=== PATIENT | male | born 1980 | race African-American/Black ===

== ENCOUNTER 2019-06-07 09:16 | Observation (INO) | payer MEDICAID ==
--- NOTE | 2019-06-07 09:51 | ER Document Report ---
ED Medical Screen (RME) - General Chief Complaint: High Blood Sugar Stated Complaint: WEAKNESS Time Seen by Provider: 06/07/19 09:44 TRAVEL OUTSIDE OF THE [place] IN LAST 30 DAYS: No - HPI Notes: 06/07/19 09:49 39-year-old male to the emergency department with complaints of weakness, constipation, increased thirst, and elevated blood sugar. He states that he has been told in the past that he is prediabetic but has not been officially diagnosed. He states that he had his sugar read on a friend's meter this morning and it read "high". He denies any chest pain, shortness of breath. He denies any syncope. He denies any abdominal pain or vomiting. I performed a medical screening exam on the patient. Have ordered a Accu-Chek for his sugar today in the emergency department as well as standard labs. We will have him followed and further managed by me inside ER provider. - Related Data Allergies/Adverse Reactions: No Known Allergies Allergy (Unverified 06/07/19 09:20) Past Medical History - Social History Frequency of alcohol use: Occasional Drug Abuse: None Physical Exam - Vital signs Vitals: Temp Pulse Resp BP Pulse Ox 97.7 F 74 16 137/86 H 95 06/07/19 09:25 06/07/19 09:25 06/07/19 09:25 06/07/19 09:25 06/07/19 09:25 Course - Vital Signs Vital signs: Temp Pulse Resp BP Pulse Ox 97.7 F 74 16 137/86 H 95 06/07/19 09:25 06/07/19 09:25 06/07/19 09:25 06/07/19 09:25 06/07/19 09:25
[2019-06-07] MEDS ORDERED: NORMAL SALINE 1000 ML 1,000 ML IV ONE (10:02)
[2019-06-07] MEDS ORDERED: INSULIN REG, HUMAN 100 UNIT/ML 3 ML VIAL (PYX) IV ONE ×2 (10:08→11:14)
--- NOTE | 2019-06-07 10:24 | ER Document Report ---
ED General - General Chief Complaint: High Blood Sugar Stated Complaint: WEAKNESS Time Seen by Provider: 06/07/19 09:44 TRAVEL OUTSIDE OF THE [place] IN LAST 30 DAYS: No - HPI Patient complains to provider of: weakness Notes: Normally healthy man presents with increasing weakness and fatigue for the last 2 or 3 days. Used his friend's glucose meter and his blood glucose read high. Patient endorses polyuria, polydipsia and weakness. Denies fever chills cough nausea vomiting diarrhea or abdominal pain. - Related Data Allergies/Adverse Reactions: No Known Allergies Allergy (Unverified 06/07/19 09:20) Past Medical History - Social History Smoking Status: Never Smoker Frequency of alcohol use: Occasional Drug Abuse: None Family History: None Patient has suicidal ideation: No Patient has homicidal ideation: No Review of Systems - Review of Systems Notes: REVIEW OF SYSTEMS: CONSTITUTIONAL: -fevers, -chills EENT: -eye pain, -difficulty swallowing, -nasal congestion CARDIOVASCULAR: -chest pain, -syncope. RESPIRATORY: -cough, -SOB GASTROINTESTINAL: -abdominal pain, -nausea, -vomiting, -diarrhea GENITOURINARY: -dysuria, -hematuria MUSCULOSKELETAL: -back pain, -neck pain SKIN: -rash or skin lesions. HEMATOLOGIC: -easy bruising or bleeding. LYMPHATIC: -swollen, enlarged glands. NEUROLOGICAL: -altered mental status or loss of consciousness, -headache, - neurologic symptoms PSYCHIATRIC: -anxiety, -depression. ALL OTHER SYSTEMS REVIEWED AND NEGATIVE. Physical Exam - Vital signs Vitals: Temp Pulse Resp BP Pulse Ox 97.7 F 74 16 137/86 H 95 06/07/19 09:25 06/07/19 09:25 06/07/19 09:25 06/07/19 09:25 06/07/19 09:25 - Notes Notes: PHYSICAL EXAMINATION: GENERAL: Well-appearing, well-nourished and in severe acute distress. HEAD: Atraumatic, normocephalic. EYES: Pupils equal round and reactive to light, extraocular movements intact, sclera anicteric, conjunctiva are normal. ENT: nares patent, oropharynx clear without exudates. Moist mucous membranes. NECK: Normal range of motion, supple without lymphadenopathy LUNGS: Breath sounds clear to auscultation bilaterally and equal. No wheezes rales or rhonchi. HEART: Regular rate and rhythm without murmurs ABDOMEN: Soft, nontender, normoactive bowel sounds. No guarding, no rebound. No masses appreciated. EXTREMITIES: Normal range of motion, no pitting or edema. No cyanosis. NEUROLOGICAL: Cranial nerves grossly intact. Normal speech, normal gait. Normal sensory and motor exams. PSYCH: Normal mood, normal affect. SKIN: Warm, Dry, normal turgor, no rashes or lesions noted. Course - Re-evaluation Re-evalutation: 06/07/19 10:33 Normally healthy young man presents with symptoms concerning for hyperglycemia, new onset diabetes or DKA. Will initiate extensive lab work-up and aggressive fluid resuscitation. At this time. Will hold off on insulin until confirmation of potassium within safe limits. 06/07/19 11:10 Potassium verify to be greater than 3.3. Give initial dose of insulin requirement. Patient has anion gap 17, decreased BUN and ketones in his urine and profoundly elevated glucose. Patient is either very mild DKA or moving slowly towards DKA. Patient will be admitted to the hospital for further management of his critical illness. - Vital Signs Vital signs: Temp Pulse Resp BP Pulse Ox 97.7 F 74 16 137/86 H 95 06/07/19 09:25 06/07/19 09:25 06/07/19 09:25 06/07/19 09:25 06/07/19 09:25 - Laboratory Result Diagrams: 06/07/19 09:55 06/07/19 09:55 Laboratory results interpreted by me: 06/07/19 06/07/19 06/07/19 09:55 09:55 09:55 RBC 6.20 H MCV 73 L MCH 23.8 L Sodium 134.6 L Chloride 91 L Glucose 584 H* POC Glucose Calcium 10.4 H Alkaline Phosphatase 171 H Total Protein 8.5 H Urine Glucose (UA) >=500 H Urine Ketones 20 H 06/07/19 06/07/19 09:59 10:07 RBC MCV MCH Sodium Chloride Glucose POC Glucose 530 H* 530 H* Calcium Alkaline Phosphatase Total Protein Urine Glucose (UA) Urine Ketones Critical Care Note - Critical Care Note Total time excluding time spent on procedures (mins): 36 Discharge - Discharge Clinical Impression: DKA (diabetic ketoacidoses) Qualifiers: Diabetes mellitus type: other specified (including PALLAVI) Diabetes mellitus complication detail: without coma Qualified Code(s): E13.10 - Other specified diabetes mellitus with ketoacidosis without coma Condition: Stable Disposition: ADMITTED INPATIENT Admitting Provider: Diane (Hospitalist) Unit Admitted: [facility]
[2019-06-07 10:28] LABS: APPEARANCE,URINE CLEAR; BILIRUBIN,URINE NEGATIVE (NEGATIVE); COLOR,URINE STRAW; GLUCOSE, URINE >=500 mg/dL (NEGATIVE); KETONES,URINE 20 mg/dL (NEGATIVE); LEUKOCYTE ESTERASE,URINE NEGATIVE (NEGATIVE); NITRITE,URINE NEGATIVE (NEGATIVE); PROTEIN,URINE NEGATIVE (NEGATIVE); URINE SPECIFIC GRAVITY 1.027; UROBILINOGEN,URINE NEGATIVE mg/dL (<2.0)
[2019-06-07 10:37] LABS: ABSOLUTE BASOPHILS # (AUTO) 0.1 10^3/uL (0.0-0.2); ABSOLUTE EOSINOPHILS # (AUTO) 0.2 10^3/uL (0.0-0.6); ABSOLUTE LYMPHOCYTES (AUTO) 2.6 10^3/uL (0.5-4.7); ABSOLUTE MONOCYTES (AUTO) 0.3 10^3/uL (0.1-1.4); ABSOLUTE NEUT (AUTO) 3.6 10^3/uL (1.7-8.2); EOSINOPHILS % (AUTO) 2.4 % (0-6); HEMATOCRIT 45.5 % (37.9-51.0); HEMOGLOBIN 14.8 g/dL (13.5-17.0); LYMPHOCYTES % (AUTO) 38.3 % (13-45); MEAN CORPUSCULAR HEMOGLOBIN 23.8 pg (27.0-33.4); MEAN CORPUSCULAR HGB CONC 32.5 g/dL (32.0-36.0); MEAN CORPUSCULAR VOLUME 73 fl (80-97); MONOCYTES % (AUTO) 4.8 % (3-13); PLATELET COUNT 271 10^3/uL (150-450); RED CELL DISTRIBUTION WIDTH 13.5 % (11.5-14.0); SEGMENTED NEUTROPHILS % (AUTO) 53.5 % (42-78); TOTAL CELLS COUNTED % (AUTO) 100 %; WHITE BLOOD COUNT 6.7 10^3/uL (4.0-10.5)
[2019-06-07 10:43] LABS: ALKALINE PHOSPHATASE 171 U/L (38-126); ANION GAP 17 (5-19); ASPARTATE AMINO TRANSFERASE 26 U/L (17-59); BILIRUBIN,DIRECT 0.2 mg/dL (0.0-0.4); BILIRUBIN,TOTAL 0.9 mg/dL (0.2-1.3); BLOOD UREA NITROGEN 14 mg/dL (7-20); CALCIUM 10.4 mg/dL (8.4-10.2); CARBON DIOXIDE 27 mmol/L (22-30); CHLORIDE 91 mmol/L (98-107); POTASSIUM 4.4 mmol/L (3.6-5.0); TOTAL PROTEIN 8.5 g/dL (6.3-8.2)
[2019-06-07 10:50] LABS: GLUCOSE 584 mg/dL (75-110)
[2019-06-07] MEDS ORDERED: NORMAL SALINE 100 ML with INSULIN REGULAR, HUMAN 100 UNIT IV PRN ×4 (11:08→11:45)
[2019-06-07] MEDS ORDERED: OXYCODONE-ACETAMINOPHEN 5-325 MG TABLET PO PRN (11:41)
[2019-06-07] MEDS ORDERED: ONDANSETRON HCL INJ/PF 4 MG/2 ML SDV IV PRN (11:41)
[2019-06-07] MEDS ORDERED: NORMAL SALINE 1000 ML 1,000 ML IV PRN (11:41)
[2019-06-07] MEDS ORDERED: DEXTROSE 40% GEL 15 GM TUBE PO PRN ×4 (11:45→16:32)
[2019-06-07] MEDS ORDERED: DEXTROSE 50%-WATER 25 GM/50 ML DISP.SYRIN IV PRN ×4 (11:45→16:32)
[2019-06-07] MEDS ORDERED: GLUCAGON,HUMAN RECOMB 1 MG INJ IM PRN ×2 (11:45→16:32)
[2019-06-07 11:48] LABS: ARTERIAL BLOOD BASE EXCESS -2.9 mmol/L; ARTERIAL BLOOD H2CO3 1.18 mmol/L (1.05-1.35); ARTERIAL BLOOD HCO3 22.1 mmol/L (20-24); ARTERIAL BLOOD O2 SATURATION 93.6 % (94-98); ARTERIAL BLOOD PCO2 39.3 mmHg (35-45); ARTERIAL BLOOD PH 7.37 (7.35-7.45); ARTERIAL BLOOD PO2 69.9 mmHg (80-100); ARTERIAL BLOOD TOTAL CO2 23.3 mmol/L (23-27)
--- NOTE | 2019-06-07 11:48 | Progress Note Acknowledgement ---
Progress Note Acknowledgement Progess Note Acknowledgement: I, the undersigned member of the medical staff with appropriate privileges and with supervisory authority over [Christian Mosley], a dependent practice allied health professional, acknowledge that I have reviewed the progress notes entered on this patient, and in my professional judgment believe that the assessment made and/or any care evidenced was appropriate
[2019-06-07 11:50] LABS: ARTERIAL BLOOD FIO2 ROOM AIR
--- NOTE | 2019-06-07 11:52 | PDOC H&P ---
History of Present Illness Admission Date/PCP: ESTEPHANIE HALE MD Patient complains of: Polyuria polyphagia polydipsia with weakness History of Present Illness: AYAD PHILLIP is a 39 year old male who is of normal health with no past medical history presents with increased weakness and fatigue for the last 2 to 3 days. Apparently patient used a glucometer a friend found his blood sugar to be reading high. Patient does states he has polyuria polyphagia polydipsia and weakness. He denies any fevers chills cough or any other complications. Patient had no treatment prior to arrival all activities aggravating factor. Past Medical History Endocrine Medical History: Comment Only: Diabetes Mellitus Type 2 - prediabetic Past Surgical History Past Surgical History: Reports: None Social History Information Source: Patient Lives with: Family Smoking Status: Never Smoker Frequency of Alcohol Use: None Hx Recreational Drug Use: No Drugs: None Hx Prescription Drug Abuse: No - Advance Directive Resuscitation Status: Full Code Family History Family History: DM Parental Family History Reviewed: Yes Children Family History Reviewed: Yes Sibling(s) Family History Reviewed.: Yes Medication/Allergy Allergies/Adverse Reactions: No Known Allergies Allergy (Unverified 06/07/19 09:20) Review of Systems Constitutional: PRESENT: weakness. ABSENT: chills, fever(s), headache(s), weight gain, weight loss Eyes: ABSENT: visual disturbances Ears: ABSENT: hearing changes Cardiovascular: ABSENT: chest pain, dyspnea on exertion, edema, orthropnea, palpitations Respiratory: ABSENT: cough, hemoptysis Gastrointestinal: ABSENT: abdominal pain, constipation, diarrhea, hematemesis, hematochezia, nausea, vomiting Genitourinary: ABSENT: dysuria, hematuria Musculoskeletal: ABSENT: joint swelling Integumentary: ABSENT: rash, wounds Neurological: ABSENT: abnormal gait, abnormal speech, confusion, dizziness, focal weakness, syncope Psychiatric: ABSENT: anxiety, depression, homidical ideation, suicidal ideation Endocrine: ABSENT: cold intolerance, heat intolerance, polydipsia, polyuria Hematologic/Lymphatic: ABSENT: easy bleeding, easy bruising Physical Exam Vital Signs: Temp Pulse Resp BP Pulse Ox 97.8 F 70 16 151/88 H 98 06/07/19 11:20 06/07/19 11:20 06/07/19 11:20 06/07/19 11:20 06/07/19 11:20 Intake & Output 06/06/19 06/07/19 06/08/19 06:59 06:59 06:59 Intake Total 1000 Balance 1000 Weight 99.1 kg General appearance: PRESENT: no acute distress, well-developed, well-nourished Head exam: PRESENT: atraumatic, normocephalic Eye exam: PRESENT: conjunctiva pink, EOMI, PERRLA. ABSENT: scleral icterus Ear exam: PRESENT: normal external ear exam Mouth exam: PRESENT: moist, tongue midline Neck exam: ABSENT: carotid bruit, JVD, lymphadenopathy, thyromegaly Respiratory exam: PRESENT: clear to auscultation tobin. ABSENT: rales, rhonchi, wheezes Cardiovascular exam: PRESENT: RRR. ABSENT: diastolic murmur, rubs, systolic murmur Pulses: PRESENT: normal dorsalis pedis pul Vascular exam: PRESENT: normal capillary refill GI/Abdominal exam: PRESENT: normal bowel sounds, soft. ABSENT: distended, guarding, mass, organolmegaly, rebound, tenderness Rectal exam: PRESENT: deferred Extremities exam: PRESENT: full ROM. ABSENT: calf tenderness, clubbing, pedal edema Neurological exam: PRESENT: alert, awake, oriented to person, oriented to place, oriented to time, oriented to situation, CN II-XII grossly intact. ABSENT: motor sensory deficit Psychiatric exam: PRESENT: appropriate affect, normal mood. ABSENT: homicidal ideation, suicidal ideation Skin exam: PRESENT: dry, intact, warm. ABSENT: cyanosis, rash Results Laboratory Results: 06/07/19 09:55 06/07/19 09:55 06/07/19 06/07/19 06/07/19 09:55 09:55 09:55 WBC 6.7 RBC 6.20 H Hgb 14.8 Hct 45.5 MCV 73 L MCH 23.8 L MCHC 32.5 RDW 13.5 Plt Count 271 Seg Neutrophils % 53.5 Sodium 134.6 L Potassium 4.4 Chloride 91 L Carbon Dioxide 27 Anion Gap 17 BUN 14 Creatinine 0.93 Est GFR ( Amer) > 60 Glucose 584 H* Calcium 10.4 H Total Bilirubin 0.9 AST 26 Alkaline Phosphatase 171 H Total Protein 8.5 H Albumin 5.0 Urine Color STRAW Urine Appearance CLEAR Urine pH 7.0 Ur Specific [place] 1.027 Urine Protein NEGATIVE Urine Glucose (UA) >=500 H Urine Ketones 20 H Urine Blood NEGATIVE Urine Nitrite NEGATIVE Ur Leukocyte Esterase NEGATIVE Urine WBC (Auto) 0 Urine RBC (Auto) 0 06/07/19 09:55 Troponin I < 0.012 Assessment and Plan - Diagnosis (1) DKA (diabetic ketoacidoses) Qualifiers: Diabetes mellitus type: other specified (including PALLAVI) Diabetes mellitus complication detail: without coma Qualified Code(s): E13.10 - Other specified diabetes mellitus with ketoacidosis without coma Is this a current diagnosis for this admission?: Yes Plan: 06/07/2019-mild at this time. Will place patient on IMCU, normal saline at 175 mL an hour, insulin drip started 4 units/h with Accu-Cheks every 2 hours. We will repeat a BMP and magnesium level at 3 PM. Once patient's gap closes and I have an A1c returned I will determine best medications place patient on. (2) Hypertension Is this a current diagnosis for this admission?: Yes Plan: 06/07/2019-Norvasc 5 mill grams p.o. daily titrate to effect (3) Hypercalcemia Is this a current diagnosis for this admission?: Yes Plan: 06/07/2019-most likely from hemoconcentration. Will hydrate and repeat calcium level in a.m. (4) Increased total protein Is this a current diagnosis for this admission?: Yes Plan: 05/28/2019-I will hydrate patient overnight repeat labs in the a.m. If it remains high we will get a serum protein electrophoresis. - Time Time Spent with patient: 35 or more minutes
--- NOTE | 2019-06-07 12:21 | EKG REPORT ---
SEVERITY:- BORDERLINE ECG - SINUS RHYTHM NONSPECIFIC INFERIOR ST-T CHANGES : Confirmed by: Angelo Almendarez MD 07-Jun-2019 12:21:13
[2019-06-07] MEDS ORDERED: INSULIN REG, HUMAN 100 UNIT/ML 3 ML VIAL (PYX) ONE (12:24)
[2019-06-07] MEDS: AMLODIPINE BESYLATE 5 MG TABLET PO SCH (12:52)
[2019-06-07 15:13] LABS: ANION GAP 11 (5-19); BLOOD UREA NITROGEN 12 mg/dL (7-20); CALCIUM 9.5 mg/dL (8.4-10.2); CARBON DIOXIDE 27 mmol/L (22-30); CHLORIDE 102 mmol/L (98-107); GLUCOSE 190 mg/dL (75-110)
[2019-06-07] MEDS ORDERED: DEXTROSE 5%-NORMAL SALINE 1,000 ML IV PRN (15:44)
[2019-06-07 17:20] LABS: ANION GAP 9 (5-19); BLOOD UREA NITROGEN 11 mg/dL (7-20); CALCIUM 9.2 mg/dL (8.4-10.2); CARBON DIOXIDE 28 mmol/L (22-30); CHLORIDE 102 mmol/L (98-107); GLUCOSE 221 mg/dL (75-110); POTASSIUM 3.7 mmol/L (3.6-5.0)
[2019-06-07] MEDS: INSULIN REG, HUMAN 100 UNIT/ML 3 ML VIAL (PYX) SUBCUT SCH (21:26)
[2019-06-07] MEDS ORDERED: INSULIN GLARGINE,HUM.REC.ANLOG 1,000 UNIT/10 ML VIAL SUBCUT SCH (22:00)
[2019-06-07] MEDS ORDERED: INSULIN GLARGINE,HUM.REC.ANLOG 1,000 UNIT/10 ML VIAL (PYX) SUBCUT ONE (22:10)
[2019-06-08 05:13] LABS: ABSOLUTE BASOPHILS # (AUTO) 0.1 10^3/uL (0.0-0.2); ABSOLUTE EOSINOPHILS # (AUTO) 0.3 10^3/uL (0.0-0.6); ABSOLUTE LYMPHOCYTES (AUTO) 3.3 10^3/uL (0.5-4.7); ABSOLUTE MONOCYTES (AUTO) 0.4 10^3/uL (0.1-1.4); ABSOLUTE NEUT (AUTO) 3.5 10^3/uL (1.7-8.2); BASOPHILS % (AUTO) 1.1 % (0-2); EOSINOPHILS % (AUTO) 3.5 % (0-6); HEMATOCRIT 42.7 % (37.9-51.0); LYMPHOCYTES % (AUTO) 43.8 % (13-45); MEAN CORPUSCULAR HEMOGLOBIN 23.7 pg (27.0-33.4); MEAN CORPUSCULAR HGB CONC 32.7 g/dL (32.0-36.0); MEAN CORPUSCULAR VOLUME 73 fl (80-97); MONOCYTES % (AUTO) 5.1 % (3-13); PLATELET COUNT 235 10^3/uL (150-450); RED BLOOD COUNT 5.89 10^6/uL (4.35-5.55); RED CELL DISTRIBUTION WIDTH 13.6 % (11.5-14.0); SEGMENTED NEUTROPHILS % (AUTO) 46.5 % (42-78); TOTAL CELLS COUNTED % (AUTO) 100 %; WHITE BLOOD COUNT 7.4 10^3/uL (4.0-10.5)
[2019-06-08 05:40] LABS: ANION GAP 12 (5-19); BLOOD UREA NITROGEN 15 mg/dL (7-20); CALCIUM 9.3 mg/dL (8.4-10.2); CARBON DIOXIDE 24 mmol/L (22-30); CHLORIDE 100 mmol/L (98-107); GLUCOSE 291 mg/dL (75-110); PHOSPHORUS 4.7 mg/dL (2.5-4.5); POTASSIUM 4.3 mmol/L (3.6-5.0)
[2019-06-08] MEDS: INSULIN REG, HUMAN 100 UNIT/ML 3 ML VIAL (PYX) SUBCUT SCH (08:48)
--- NOTE | 2019-06-08 08:54 | PDOC DISCHARGE SUMMARY ---
General - Admit/Disc Date/PCP Admission Date/Primary Care Provider: 06/07/19 12:00 ESTEPHANIE HALE MD Discharge Date: 06/08/19 - Discharge Diagnosis (1) DKA (diabetic ketoacidoses) Is this a current diagnosis for this admission?: Yes (2) Hypertension Is this a current diagnosis for this admission?: Yes (3) Hypercalcemia Is this a current diagnosis for this admission?: Yes (4) Increased total protein Is this a current diagnosis for this admission?: Yes - Additional Information Resuscitation Status: Full Code Discharge Diet: As Tolerated Discharge Activity: Activity As Tolerated Prescriptions: Insulin Glargine,Hum.rec.anlog [Lantus Insulin 100 Unit/1 ml 10 ml] 30 unit SUBCUT QHS #1 vial Metformin HCl 500 mg PO BID #60 tablet Amlodipine Besylate [Norvasc 5 mg Tablet] 5 mg PO DAILY #30 tablet Insulin Aspart Protam & Aspart [Novolog Mix 70-30 Vial] 10 unit SQ TID #1 vial Home Medications: Amlodipine Besylate [Norvasc 5 mg Tablet] 5 mg PO DAILY #30 tablet 06/08/19 Insulin Aspart Protam & Aspart [Novolog Mix 70-30 Vial] 10 unit SQ TID #1 vial 06/08/19 Insulin Glargine,Hum.rec.anlog [Lantus Insulin 100 Unit/1 ml 10 ml] 30 unit TODD BCUT QHS #1 vial 06/08/19 Metformin HCl 500 mg PO BID #60 tablet 06/08/19 History of Present Illness Patient complains of: None this a.m. History of Present Illness: AYDA PHILLIP is a 39 year old male who is of normal health with no past medical history presents with increased weakness and fatigue for the last 2 to 3 days. Apparently patient used a glucometer a friend found his blood sugar to be reading high. Patient does states he has polyuria polyphagia polydipsia and weakness. He denies any fevers chills cough or any other complications. Patient had no treatment prior to arrival all activities aggravating factor. Hospital Course Hospital Course: Patient was admitted in observation placed on a insulin drip for several hours. Patient showed a closure of his anion gap and was placed on long-acting Lantus insulin and a sliding scale insulin. At this time patient is improved sufficiently return home. Patient also showed hypertension during his stay which I treated with 5 mg of Norvasc. Patient will be discharged home on metformin 500 g p.o. twice daily, Lantus 30 units at bedtime and NovoLog 70/30 10 units 3 times daily with meals. Patient has been educated to obtain a glucometer and to check his blood sugars before breakfast and at least 2 hours after dinner and make a diabetes journal to take to his primary care practitioner. Patient will follow-up with primary care within 1 week. Patient is in agreements plan of care and understands. Patient is also been educated about various websites that can help with his diabetic diet he will give given other information by nursing staff. Physical Exam Vital Signs: Temp Pulse Resp BP Pulse Ox 98.1 F 67 16 116/77 95 06/08/19 07:36 06/08/19 07:36 06/08/19 07:36 06/08/19 07:36 06/08/19 07:36 Intake & Output 06/07/19 06/08/19 06/09/19 06:59 06:59 06:59 Intake Total 2016 Balance 2016 Weight 101.1 kg General appearance: PRESENT: no acute distress, well-developed, well-nourished Head exam: PRESENT: atraumatic, normocephalic Eye exam: PRESENT: conjunctiva pink, EOMI, PERRLA. ABSENT: scleral icterus Ear exam: PRESENT: normal external ear exam Mouth exam: PRESENT: moist, tongue midline Neck exam: ABSENT: carotid bruit, JVD, lymphadenopathy, thyromegaly Respiratory exam: PRESENT: clear to auscultation tobin. ABSENT: rales, rhonchi, wheezes Cardiovascular exam: PRESENT: RRR. ABSENT: diastolic murmur, rubs, systolic murmur Pulses: PRESENT: normal dorsalis pedis pul Vascular exam: PRESENT: normal capillary refill GI/Abdominal exam: PRESENT: normal bowel sounds, soft. ABSENT: distended, guarding, mass, organolmegaly, rebound, tenderness Rectal exam: PRESENT: deferred Extremities exam: PRESENT: full ROM. ABSENT: calf tenderness, clubbing, pedal edema Neurological exam: PRESENT: alert, awake, oriented to person, oriented to place, oriented to time, oriented to situation, CN II-XII grossly intact. ABSENT: motor sensory deficit Psychiatric exam: PRESENT: appropriate affect, normal mood. ABSENT: homicidal ideation, suicidal ideation Skin exam: PRESENT: dry, intact, warm. ABSENT: cyanosis, rash Results Laboratory Results: 06/08/19 04:42 06/08/19 04:42 06/07/19 06/07/19 06/07/19 09:55 09:55 09:55 WBC 6.7 RBC 6.20 H Hgb 14.8 Hct 45.5 MCV 73 L MCH 23.8 L MCHC 32.5 RDW 13.5 Plt Count 271 Seg Neutrophils % 53.5 Carbonic Acid HCO3/H2CO3 Ratio ABG pH ABG pCO2 ABG pO2 ABG HCO3 ABG O2 Saturation ABG Base Excess FiO2 Sodium 134.6 L Potassium 4.4 Chloride 91 L Carbon Dioxide 27 Anion Gap 17 BUN 14 Creatinine 0.93 Est GFR ( Amer) > 60 Glucose 584 H* Calcium 10.4 H Phosphorus Magnesium Total Bilirubin 0.9 AST 26 Alkaline Phosphatase 171 H Total Protein 8.5 H Albumin 5.0 Urine Color STRAW Urine Appearance CLEAR Urine pH 7.0 Ur Specific [place] 1.027 Urine Protein NEGATIVE Urine Glucose (UA) >=500 H Urine Ketones 20 H Urine Blood NEGATIVE Urine Nitrite NEGATIVE Ur Leukocyte Esterase NEGATIVE Urine WBC (Auto) 0 Urine RBC (Auto) 0 06/07/19 06/07/19 06/07/19 11:33 14:43 16:46 WBC RBC Hgb Hct MCV MCH MCHC RDW Plt Count Seg Neutrophils % Carbonic Acid 1.18 HCO3/H2CO3 Ratio 18:1 ABG pH 7.37 ABG pCO2 39.3 ABG pO2 69.9 L ABG HCO3 22.1 ABG O2 Saturation 93.6 L ABG Base Excess -2.9 FiO2 ROOM AIR Sodium 140.1 139.2 Potassium 4.0 3.7 Chloride 102 102 Carbon Dioxide 27 28 Anion Gap 11 9 BUN 12 11 Creatinine 0.80 0.78 Est GFR ( Amer) > 60 > 60 Glucose 190 H 221 H Calcium 9.5 9.2 Phosphorus Magnesium 2.0 1.9 Total Bilirubin AST Alkaline Phosphatase Total Protein Albumin Urine Color Urine Appearance Urine pH Ur Specific [place] Urine Protein Urine Glucose (UA) Urine Ketones Urine Blood Urine Nitrite Ur Leukocyte Esterase Urine WBC (Auto) Urine RBC (Auto) 06/08/19 06/08/19 04:42 04:42 WBC 7.4 RBC 5.89 H Hgb 14.0 Hct 42.7 MCV 73 L MCH 23.7 L MCHC 32.7 RDW 13.6 Plt Count 235 Seg Neutrophils % 46.5 Carbonic Acid HCO3/H2CO3 Ratio ABG pH ABG pCO2 ABG pO2 ABG HCO3 ABG O2 Saturation ABG Base Excess FiO2 Sodium 136.1 L Potassium 4.3 Chloride 100 Carbon Dioxide 24 Anion Gap 12 BUN 15 Creatinine 0.92 Est GFR ( Amer) > 60 Glucose 291 H Calcium 9.3 Phosphorus 4.7 H Magnesium 1.7 Total Bilirubin AST Alkaline Phosphatase Total Protein Albumin Urine Color Urine Appearance Urine pH Ur Specific [place] Urine Protein Urine Glucose (UA) Urine Ketones Urine Blood Urine Nitrite Ur Leukocyte Esterase Urine WBC (Auto) Urine RBC (Auto) 06/07/19 09:55 Troponin I < 0.012 Qualifiers - * PATIENT BEING DISCHARGED WITH ANY OF THE FOLLOWING DIAGNOSIS: No Acute Heart Failure - Is this a Heart Failure Patient?: No Plan Time Spent: Greater than 30 Minutes
[2019-06-08] MEDS: AMLODIPINE BESYLATE 5 MG TABLET PO SCH (09:12)
[2019-06-08 11:55] VITALS: BP 129/67
[2019-06-08] MEDS ORDERED: INSULIN REG, HUMAN 100 UNIT/ML 3 ML VIAL (PYX) ONE (12:16)
== END 2019-06-08 11:33 | disposition home or self-care (01) ==
LOC: ER 09:16 → EH 12:00 → INTOOBSV 12:00 → 3W 13:53
PROVIDERS: ADMIT Hospitalist; ATTEND Hospitalist
DX: E13.10 Other specified diabetes mellitus with ketoacidosis without coma (principal); I10 Essential (primary) hypertension; E83.52 Hypercalcemia; K59.00 Constipation, unspecified; Z83.3 Family history of diabetes mellitus
CPT/HCPCS: 93005; 99291; 96360; 36415 ×2; 82010; 82962 ×2; 82803; 83735 ×2; 84100; 85025 ×2; 80048; 80053; 81001; 84484; 83036; 93010; G0378 ×3; J1815 ×3; J3490 ×2; J7030